=== PATIENT | female | born 1955 | race Caucasian/White ===

== ENCOUNTER 2019-03-28 09:36 | Day surgery (SDC) ==
--- NOTE | 2019-03-22 08:14 | EKG Report ---
Test Performed on : 03/22/2019 08:06:09 AM Test Reason : PAT Blood Pressure : / mmHG Vent. Rate : 082 BPM Atrial Rate : 082 BPM P-R Int : 166 ms QRS Dur : 096 ms QT Int : 378 ms P-R-T Axes : 046 046 019 degrees QTc Int : 441 ms Normal sinus rhythm. Nonspecific T wave abnormality Abnormal ECG No previous ECGs available Confirmed by Richard Garcia MD ([id number]) on 03/23/2019 7:33:51 AM
[2019-03-22 08:19] LABS: URINE SOURCE CLEAN CATCH
[2019-03-22 08:48] LABS: BASO# 0.02 X1000 (0.0-0.2); BASO% 0.8 % (0.0-0.8); EOS# 0.08 X1000 (0.0-0.7); EOS% 3.1 % (0.0-10.0); HEMATOCRIT 38.2 % (37.0-47.0); HEMOGLOBIN 12.9 g/dL (12.0-16.0); LYMPH% 38.2 % (20.5-51.1); MCH 29.9 PG (27-31); MCHC 33.8 g/dL (33-37); MCV 88.4 FL (81-99); MONO% 7.6 % (1.7-9.3); MPV 10.9 FL (7.4-10.4); NEUT# 1.32 X1000 (1.4-6.5); NEUT% 50.3 % (42.2-75.2); PLT 105 X1000 (130-400); RBC 4.32 XMIL (4.2-5.4); RDW 14.9 % (11.5-14.5); WBC 2.62 X1000 (4.8-10.8)
[2019-03-22 08:56] LABS: BILIRUBIN URINE NEGATIVE (NEGATIVE); BLOOD URINE NEGATIVE (NEGATIVE); COLOR YELLOW; GLUCOSE URINE NEGATIVE (NEGATIVE); KETONE URINE NEGATIVE (NEGATIVE); LEUKOCYTES URINE MODERATE (NEGATIVE); NITRITE URINE NEGATIVE (NEGATIVE); PROTEIN URINE 30 mg/dL (NEGATIVE); SP GRAVITY URINE 1.024; TURBIDITY URINE CLEAR (CLEAR); UROBILINOGEN URINE 2 mg/dL (NORMAL)
[2019-03-22 08:59] LABS: UR EPITHELIAL CELLS >10 /HPF (<10); URINE BACTERIA 1+ /HPF; URINE RBC <10 /HPF (<10); URINE WBC <10 /HPF (<10)
[2019-03-22 09:42] LABS: AGAP 10; BUN 14 mg/dL (8-22); CHLORIDE 109 mmol/L (98-107); COSMO 291; CREATININE 0.6 mg/dL (0.5-0.9); ESTIMATED GFR > 60; GLUCOSE 94 mg/dL (70-104); POTASSIUM 4.4 mmol/L (3.5-5.1); SODIUM 146 mmol/L (136-145); TCO2 27 mmol/L (25-35)
[2019-03-22 10:10] LABS: INR 1.09; PROTIME 14.2 Seconds (11.0-16.0)
[2019-03-28] MEDS ORDERED: COLACE ONE (10:03)
[2019-03-28] MEDS ORDERED: PEPCID ONE (10:03)
[2019-03-28] MEDS ORDERED: KEFZOL 1 GM/D5W 2 GM/100 ML IVPB ONE (10:03)
[2019-03-28] MEDS ORDERED: CELEBREX ONE (10:03)
[2019-03-28] MEDS ORDERED: REGLAN ONE (10:03)
[2019-03-28] MEDS ORDERED: LYRICA ONE (10:03)
[2019-03-28] MEDS ORDERED: LR 1,000 ML ONE (10:03)
[2019-03-28] MEDS ORDERED: DIPRIVAN 1% ONE (11:40)
[2019-03-28] MEDS ORDERED: TORADOL ONE (11:46)
[2019-03-28] MEDS ORDERED: DURAMORPH ONE (11:46)
[2019-03-28] MEDS ORDERED: MARCAINE 0.25% PF ONE (11:46)
[2019-03-28] MEDS ORDERED: CYKLOKAPRON 1,000 MG/NS 1,000 MG/100 ML IVPB ONE ×2 (11:47→11:48)
[2019-03-28] MEDS ORDERED: NEOSPORIN G.U. IRRIGANT ONE (11:47)
[2019-03-28] MEDS ORDERED: EXPAREL 1.3% ONE (11:47)
[2019-03-28] MEDS ORDERED: SODIUM CHLORIDE 0.9% ONE (11:47)
[2019-03-28] MEDS ORDERED: VANCOMYCIN ONE (11:47)
[2019-03-28] MEDS ORDERED: FENTANYL ONE (12:09)
[2019-03-28 13:14] LABS: BILIRUBIN URINE NEGATIVE (NEGATIVE); BLOOD URINE NEGATIVE (NEGATIVE); COLOR YELLOW; GLUCOSE URINE NEGATIVE (NEGATIVE); KETONE URINE NEGATIVE (NEGATIVE); LEUKOCYTES URINE NEGATIVE (NEGATIVE); NITRITE URINE NEGATIVE (NEGATIVE); PH URINE 6.5; PROTEIN URINE TRACE mg/dL (NEGATIVE); SP GRAVITY URINE 1.014; TURBIDITY URINE CLEAR (CLEAR); URINE SOURCE CATH; UROBILINOGEN URINE NORMAL (NORMAL)
[2019-03-28 13:15] LABS: UR EPITHELIAL CELLS <10 /HPF (<10); URINE BACTERIA NEGATIVE /HPF; URINE RBC <10 /HPF (<10); URINE WBC <10 /HPF (<10)
[2019-03-28] MEDS ORDERED: OFIRMEV 1000 MG/ISOTONIC SOLN 1,000 MG/100 ML BOTTLE ONE (13:47)
[2019-03-28] MEDS ORDERED: NS 1,000 ML ONE (14:30)
--- NOTE | 2019-03-28 14:45 | Diag Imaging Result Doc PS360 ---
EXAM: KNEE 1-2 VIEWS-RIGHT 03/28/2019 HISTORY: R TKA TECHNIQUE: Right knee two views COMMENT: There is a total knee arthroplasty. There is no evidence of acute bony abnormality otherwise. IMPRESSION: Postsurgical changes. Electronically signed by Zev Mayfield 03/28/2019 2:43 PM
--- NOTE | 2019-03-28 15:07 | OPERATIVE NOTE ---
PROCEDURE DATE: 03/28/2019 PREOPERATIVE DIAGNOSIS: Degenerative joint disease, right knee. POSTOPERATIVE DIAGNOSIS: Degenerative joint disease, right knee. PROCEDURE PERFORMED: Right total knee arthroplasty. SURGEON: Kaur Fine MD. AUTOMOBILE ASSEMBLY SUPERVISOR: BRITTANY Bach. Mr. Bartholomew was necessary for proper retraction and manipulation the leg during the case. ANESTHESIA: Spinal. COMPLICATION: None. PROCEDURE IN DETAIL: This is a 63-year-old female with DJD about the right knee presents for surgical knee replacement. Risks, benefits, and no guarantees were discussed and she is willing to proceed. She was taken to the operating room and satisfactory anesthesia obtained. The right knee was prepped and draped in usual sterile fashion. A time-out was taken to confirm operative site, procedure, and patient. The leg was wrapped with an Esmarch and tourniquet inflated to 350 mmHg. A midline incision was made over the front of the knee followed by quad tendon sparing arthrotomy. The patella was everted and resurfaced with freehand technique and sized to a 29 medialized dome patella. The drill paddle was used to prepare for the patellar implant and the protective cover placed on this and subluxed laterally. The knee was flexed. Intramedullary hole made in the distal femur and the distal femur reamed up to a 14 reamer to accommodate a stemmed prosthesis. Decision was made to make a stemmed primary joint replacement on both sides due to osteoporosis of the bone as well as moderate obesity of the leg. After reaming up to a 14 reamer with the stem in the intramedullary canal, the distal femur was cut and primary slot roughly 10-11 mm distal femoral resection and 5 degrees of valgus. Any remaining osteophytes were debrided about the femur. The knee was then flexed and the tibial cutting block assembled with extramedullary alignment and the tibial resection made. The intramedullary canal of the tibia was reamed up to a 12 mm reamer to accommodate a 12 mm stem on the tibial tray. The tibial was broached proximally up to a 37 metaphyseal sleeve. A 2.5 Sigma tibial tray with a trial metaphyseal sleeve and a 14 mm stem was assembled and placed in the tibia. The 2.5 finishing block for the femur was then assembled and the knee placed at 90 degrees and the collateral ligaments tensioned with a spacer block. A femoral block was then secured and the anterior, posterior, and chamfer cuts sequentially made. The trial femur was then assembled and a trial reduction performed with good range of motion and stability with a 15 mm trial implant. The patella had midline tracking. The trial components were removed and the bony surfaces thoroughly irrigated with pulsatile lavage. The femoral component was assembled with a 75 x 14 stem, a 31 femoral sleeve, and a 2.5 TC3 right femoral component. Tibial component was a 2.5 tray with a 37 metaphyseal sleeve and a 12 x 75 stem. The cement with a gram of vancomycin was then used to cement the implant in place with the bony surfaces with the ingrowth inside the intramedullary canal. While the cement hardened, the excess cement was removed with a [place] elevator. The joint capsule was injected with Exparel and a Hemovac drain placed. The patella was cemented on at the same time as the femur and tibia. After curing the cement, a 15 mm posterior stabilized polyethylene bearing was inserted into the tibial tray and the knee reduced. Final range of motion was 0 to 120 degrees of flexion with midline tracking and excellent soft tissue balance. The wound was copiously irrigated with irrigant. It was closed over the drain with #1 Vicryl in the arthrotomy, 2-0 Vicryl in the subcutaneous, and skin andrey on the skin edges. Sterile dressings completed the closure and she was recovered from anesthesia and transferred to the recovery room in stable condition. No intraoperative complications were noted. Instrument count and sponge count was correct at the time of closure. cc: Chris Fine MD
[2019-03-28] MEDS ORDERED: ZOFRAN IV PRN (15:45)
[2019-03-28] MEDS ORDERED: ZOFRAN ODT PO PRN (15:45)
[2019-03-28] MEDS ORDERED: OXY IR PO PRN (15:45)
[2019-03-28] MEDS ORDERED: MORPHINE IV PRN ×3 (15:45)
[2019-03-28] MEDS ORDERED: PATIENT'S OWN MED PO PRN (18:22)
[2019-03-28] MEDS: KEFZOL 2 GM/D5W 2 GM/50 ML IVPB IV SCH (20:09)
[2019-03-28] MEDS: ULTRAM PO SCH (20:10)
[2019-03-28] MEDS: PERIDEX MT SCH (20:10)
[2019-03-28] MEDS: NS 1,000 ML IV SCH (20:10)
[2019-03-28] MEDS: TYLENOL PO SCH (20:11)
[2019-03-28] MEDS: CELEBREX PO SCH (20:11)
[2019-03-28] MEDS: COLACE PO SCH (20:12)
[2019-03-28] MEDS ORDERED: NON-FORMULARY MED (Celecoxib [Celebrex] 200 MG) PO SCH (21:00)
[2019-03-29] MEDS: TYLENOL PO SCH ×2 (02:45→08:12)
[2019-03-29] MEDS: ULTRAM PO SCH ×3 (02:46→12:15)
[2019-03-29] MEDS: NS 1,000 ML IV SCH ×2 (02:46→07:55)
[2019-03-29] MEDS: KEFZOL 2 GM/D5W 2 GM/50 ML IVPB IV SCH (04:43)
[2019-03-29 06:00] LABS: HEMATOCRIT 31.5 % (37.0-47.0); HEMOGLOBIN 10.5 g/dL (12.0-16.0)
[2019-03-29] MEDS ORDERED: XARELTO PO SCH (06:00)
[2019-03-29 06:19] LABS: AGAP 8; BUN 14 mg/dL (8-22); CALCIUM 7.9 mg/dL (8.8-10.2); CHLORIDE 102 mmol/L (98-107); COSMO 274; CREATININE 0.6 mg/dL (0.5-0.9); ESTIMATED GFR > 60; GLUCOSE 127 mg/dL (70-104); POTASSIUM 3.3 mmol/L (3.5-5.1); SODIUM 136 mmol/L (136-145); TCO2 26 mmol/L (25-35)
[2019-03-29 07:38] VITALS: BP 102/62
--- NOTE | 2019-03-29 07:48 | ORTHOPAEDICS PROGRESS NOTE ---
DATE: 03/29/2019 SUBJECTIVE: Ms. Mahajan is seen status post total knee replacement. At the present time, she is afebrile with stable vital signs. Her bandage is clean and dry. She is motor and sensory intact with no signs of infection, DVT, or bleeding. We will plan on mobilizing her today. She can be discharged home with outpatient followup and home therapy. She is to continue with all her regular medicines. We have placed her on Rulo 10 as needed for pain, Xarelto 10 mg for DVT prophylaxis, and Bactrim for infection prophylaxis. She is to return in roughly 10 to 14 days. She is to call or return for any worsening signs or symptoms in the interim. cc: Chris Fine MD
[2019-03-29] MEDS ORDERED: PLAQUENIL PO SCH (08:00)
[2019-03-29] MEDS ORDERED: PATIENT'S OWN MED PO SCH (08:00)
[2019-03-29] MEDS: OXY IR PO PRN ×2 (08:11→11:40)
[2019-03-29] MEDS: CELEBREX PO SCH (08:12)
[2019-03-29] MEDS: PERIDEX MT SCH (08:13)
[2019-03-29] MEDS ORDERED: PEPCID PO SCH (09:00)
[2019-03-29] MEDS ORDERED: VITAMIN D PO SCH (09:00)
[2019-03-29] MEDS: COLACE PO SCH (10:09)
== END 2019-03-29 16:38 | disposition home or self-care (01) ==
LOC: OR 09:36 → 4N 09:36 → OR 03-29 16:38
PROVIDERS: ATTEND Orthopaedic Surgery Adult Reconstructive Orthopaedic Surgery

== ENCOUNTER 2019-04-19 21:35 | Inpatient (IN) ==
[2019-04-19] MEDS ORDERED: TYLENOL PO ONE (22:10)
[2019-04-19 23:09] LABS: INR 1.37; PROTIME 17.2 Seconds (11.0-16.0)
[2019-04-19 23:10] LABS: PTT 33.9 Seconds (22.3-41.8)
[2019-04-19 23:19] LABS: HEMATOCRIT 31.2 % (37.0-47.0); HEMOGLOBIN 10.3 g/dL (12.0-16.0); LYMPH# 0.19 X1000 (1.2-3.4); LYMPH% 11.1 % (20.5-51.1); MCH 30.5 PG (27-31); MCV 92.3 FL (81-99); MONO# 0.03 X1000 (0.11-0.59); MONO% 1.8 % (1.7-9.3); MPV 10.7 FL (7.4-10.4); NEUT# 1.49 X1000 (1.4-6.5); NEUT% 87.1 % (42.2-75.2); PLT 97 X1000 (130-400); RBC 3.38 XMIL (4.2-5.4); RDW 16.5 % (11.5-14.5); WBC 1.71 X1000 (4.8-10.8)
[2019-04-19 23:29] LABS: AGAP 12; ALBUMIN 3.1 g/dL (3.5-5.0); ALKALINE PHOSPHATASE 192 U/L (32-104); BUN 18 mg/dL (8-22); CALCIUM 8.4 mg/dL (8.8-10.2); CHLORIDE 105 mmol/L (98-107); COSMO 280; CREATININE 0.7 mg/dL (0.5-0.9); ESTIMATED GFR > 60; GLUCOSE 109 mg/dL (70-104); GOT 55 U/L (10-30); GPT 43 U/L (10-36); POTASSIUM 3.4 mmol/L (3.5-5.1); SODIUM 139 mmol/L (136-145); TCO2 22 mmol/L (25-35); TOTAL BILIRUBIN 2.17 mg/dL (0.20-1.00); TOTAL PROTEIN 6.3 g/dL (6.3-8.3)
[2019-04-20 00:14] LABS: URINE SOURCE CLEAN CATCH
[2019-04-20 00:20] LABS: BILIRUBIN URINE SMALL (NEGATIVE); BLOOD URINE NEGATIVE (NEGATIVE); COLOR ORANGE; GLUCOSE URINE NEGATIVE (NEGATIVE); KETONE URINE NEGATIVE (NEGATIVE); LEUKOCYTES URINE MODERATE (NEGATIVE); NITRITE URINE NEGATIVE (NEGATIVE); PH URINE 5.5; PROTEIN URINE 100 mg/dL (NEGATIVE); SP GRAVITY URINE 1.029; TURBIDITY URINE HAZY (CLEAR); UROBILINOGEN URINE 3 mg/dL (NORMAL)
[2019-04-20 00:22] LABS: UR EPITHELIAL CELLS >10 /HPF (<10); URINE BACTERIA 1+ /HPF; URINE RBC <10 /HPF (<10); URINE WBC 20-40 /HPF (<10)
[2019-04-20 00:27] LABS: URINE CASTS NONE SEEN; URINE CRYSTALS NONE SEEN; URINE SMALL ROUND CELLS NONE SEEN; URINE YEAST NONE SEEN
[2019-04-20] MEDS ORDERED: ROCEPHIN 1 GM in NS 50 ML IV ONE (00:36)
[2019-04-20] MEDS ORDERED: NS 1,000 ML IV ONE (00:45)
--- NOTE | 2019-04-20 00:47 | PROVIDER DOCUMENTATION ---
This chart was entered by Lexy Landers Scribe, acting as scribe for Wilber Cha MD. HPI-General Adult - General Chief Complaint: Post Op Complaint Stated Complaint: KNEE SURGERY POST OP COMPLAINT Time Seen by Provider: 04/19/19 21:57 Source: patient Allergies/Adverse Reactions: Patient Allergies Allergy/AdvReac Type Severity Reaction Status Date / Time aspirin Allergy NAUSEA/VOMI Verified 03/27/19 09:05 TING Home Medications: Home Medication List Medication Instructions Recorded Confirmed Last Taken Type Celecoxib [Celebrex] 200 mg PO WBREAKFAST 03/22/19 03/28/19 03/26/19 History Cholecalciferol (Vit D3) [Vitamin 1,000 unit PO DAILY 03/22/19 03/28/19 03/27/19 08:00 History D3] Hydroxychloroquine Sulfate 200 mg PO BID CC 03/22/19 03/28/19 03/27/19 08:00 History [Plaquenil] Mesalamine [Apriso] 2 tab PO WBREAKFAST 03/22/19 03/28/19 03/27/19 08:00 History Mesalamine [Apriso] 4 tab PO DAILY PRN PRN 03/22/19 03/28/19 Unknown History Hydrocodone/Acetaminophen [[place] 1 ea PO Q4H PRN #30 tab 03/29/19 Unknown Rx 10-325 Tablet] Rivaroxaban [Xarelto] 10 mg PO DAILY@0600 tab 03/29/19 Unknown Rx Sulfamethoxazole/Trimethoprim 1 ea PO BID #14 tab 03/29/19 Unknown Rx [Bactrim Ds Tablet] - History of Present Illness -Gen Adult Nature of Presenting Problems: pt is a 63 yr old female presenting with 1 day complaint of fever, cough , nausea and dizziness, onset last night, pt reports nausea improved with Zofran, no fever improvement with tylenol/motrin. pt reports right knee replacement 3 weeks ago with no issues post surgery. pt denies any other complaints. Location of Pain/Injury: reports: none Pain Radiation: reports: no radiation Quality of Pain: reports: none Severity: reports: moderate Onset/Duration: reports: last night Timing: reports: still present Context/Activities at Onset: reports: rest Modifying Factors: improves with: analgesics (tylenol/motrin-no relief), other medication (zofran-no relief) Associated Symptoms: reports: cough, dizziness, fever/chills, nausea. denies: vomiting Similar Symptoms Previously?: No Recently seen or treated by another doctor?: No Review of Systems - Adult - REVIEW OF SYSTEMS - ADULT Constitutional: reports: chills, fever, fatique Eyes: reports: no symptoms reported Ears, Nose, Mouth & Throat: denies: ear pain, sinus problem, throat pain Cardiovascular: denies: chest pain, palpitations, syncope Respiratory: reports: cough. denies: shortness of breath, wheezing Gastrointestinal: reports: nausea. denies: abdominal pain, diarrhea, vomiting Genitourinary: reports: no symptoms reported Musculoskeletal: reports: joint pain (right knee-recent surgery). denies: muscle aches Integumentary: reports: no symptoms reported Neurological: reports: dizziness/vertigo. denies: headache/migraines, syncope Psychiatric: reports: no symptoms reported Endocrine: reports: no symptoms reported Hematologic/Lymphatic: reports: no symptoms reported Allergic/Immunologic: reports: no symptoms reported All Other Systems: Reviewed and Negative Past History - Adult - PAST MEDICAL HISTORY-ADULT Review of Records: reports: Old Records Reviewed, Nursing Assessment Review, Medications Reviewed, Social history reviewed & non-contributory. Major Childhood Illnesses: reports: denies history Cardiovascular: reports: denies history Respiratory: reports: denies history Gastrointestinal: reports: denies history Obstetrical/Gynecological: reports: denies history Genitourinary: reports: denies history Musculoskeletal: reports: denies history Neurological: reports: denies history Endocrine/Immune: reports: denies history Other Conditions: reports: denies history - IMMUNIZATION STATUS Childhood Immunizations: See Nurse Assessment Flu Vaccine: See Nurse Assessment - FAMILY HISTORY Family History: reviewed, not pertinent - SOCIAL HISTORY Living Situation: family Physical Exam-General - PHYSICAL EXAM-ADULT Initial Vital Signs Reviewed: Yes - CONSTITUTIONAL General Appearance: alert, no apparent distress, obese - EYES Eyes: PERRL/EOMI - HEAD, EARS, NOSE, MOUTH & THROAT HENMT: normocephalic/atraumatic, moist mucous membranes, normal ENT inspection - NECK Neck: non-tender, full range of motion, supple, normal inspection - RESPIRATORY Respiratory: chest non-tender, lungs clear, normal breath sounds, no pleuratic chest pain, no respiratory distress, no accessory muscle use - CARDIOVASCULAR Cardiovascular: normal peripheral pulses, tachycardia - GASTROINTESTINAL (ABDOMEN) Abdominal Exam: normal bowel sounds, non tender, soft - LYMPHATIC Lymphatic: no adenopathy - MUSCULOSKELETAL Back Exam: normal inspection, no CVA tenderness, no vertebral tenderness Extremity: other (well healing surgical inscion right knee) - SKIN Integumentary: normal color, normal turgor, warm/dry - NEUROLOGIC Neurologic: grossly normal - PSYCHIATRIC Psych/Mental Status: normal mood/affect Progress - PLAN OF CARE/RESULTS Progress/Plan/Lab Results: Vital Signs - 8 hr 04/19/19 21:43 Temperature 102.4 F H Pulse Rate 103 H Respiratory Rate 17 Blood Pressure 109/66 O2 Sat by Pulse Oximetry 93 L Result Diagrams: 04/19/19 22:50 04/19/19 22:50 - CONSULTS/PCP/HOSPITALIST Notification #1 *Consult/PCP/Hospitalist*: Dr Pedroza Time Discussed: 00:40 Reason/Comments: discussed plan of care for pt admit Consult Disposition: Admit Departure - Departure Date of Disposition Decision: 04/20/19 Time of Disposition Decision: 00:46 DIAGNOSIS: Fever, Urinary tract infection Disposition: ADMITTED INPATIENT 09 Certified Medical Emergency: Emergent Condition: Serious Referrals and Follow-Ups: Sánchez Hendrickson [Primary Care Provider] - - Critical Care Note This patient required my direct & personal management of CC.: Yes Attestation - Physician/ YI Attestation The physician spent face to face time with patient:: Yes Advanced Practice Provider documentation review:: Supervising physician onsite and consulted in the evaluation and care of this patient. The physician did have a face to face encounter with the patient. This chart was documented by the indicated scribe, (Lexy Landers Scribe) and accurately reflects the services I performed and decisions made by me, Wilber Cha MD, as attested by the provider's signature.
[2019-04-20] MEDS ORDERED: TYLENOL PO PRN (02:06)
[2019-04-20] MEDS: NS 1,000 ML IV SCH ×2 (02:25→22:52)
--- NOTE | 2019-04-20 03:03 | HISTORY AND PHYSICAL ---
PRIMARY CARE PHYSICIAN: Dr. Hendrickson. CHIEF COMPLAINT: Fever, nausea, vomiting x2 days. HISTORY OF PRESENTING ILLNESS: This is a 63-year-old female with a history of lupus, ulcerative colitis, and breast cancer, who recently had a right knee replacement, had presented to the emergency department with complaint of fever, nausea, vomiting for the past 2 days. She states that she was not feeling well and subsequently she had come to the emergency department. In the ED, she was evaluated, she was found to have a fever, and also found to possibly have a UTI. Due to her presenting symptoms, it was thought that she would need admission for further management. At the time of my examination, patient denied any headache, chest pain, shortness of breath, hemoptysis, or weight changes, but complained of fever, being nauseated, and not feeling well. PAST MEDICAL HISTORY: Include lupus, ulcerative colitis, breast cancer, she is status post radiation treatment. PAST SURGICAL HISTORY: Right knee replacement, left breast lumpectomy. ALLERGIES: No known drug allergies. CURRENT MEDICATIONS: Include Celebrex 200 mg p.o. daily, [place] 10/325 one p.o. q.6 hours, Plaquenil 200 mg p.o. daily, Xarelto 10 mg p.o. daily. SOCIAL HISTORY: She denies any history of smoking, alcohol, or illicit drug use. FAMILY HISTORY: No history of coronary artery disease. REVIEW OF SYSTEMS: Fourteen-point review of system as listed in HPI. Other systems negative. PHYSICAL EXAMINATION: GENERAL: Cooperative, friendly female, she is resting more comfortably now. VITAL SIGNS: Temperature 100.9 degrees, pulse 107, respirations 20, blood pressure 95/46. HEENT: Atraumatic, normocephalic. Extraocular movements intact. PERRLA. NECK: No masses. CHEST: Clear to auscultation. CARDIOVASCULAR: Regular rate and rhythm. ABDOMEN: Soft, positive bowel sounds. EXTREMITIES: No edema. NEUROLOGIC: She is awake, alert, oriented x3. GENITOURINARY: No bladder distention. SKIN: Warm. LABORATORIES AND STUDIES: UA shows +1 bacteria and moderate leukocytes. Sodium 139, potassium 3.4, chloride 105, CO2 is 22, BUN is 18, creatinine 0.7. Glucose 109. WBCs 1.71, hemoglobin 10.3, hematocrit 31.2, platelets 97,000. ASSESSMENT: A 63-year-old female with a history of lupus, ulcerative colitis, and breast cancer, who had presented to emergency department. Who had complained of fever, nausea, vomiting for the past 2 days. She was evaluated in the emergency department, and it was suspected possibly she had a urinary tract infection. Subsequently, we will place her for observation for further evaluation and management. 1. Fever. 2. Suspected urinary tract infection. 3. History of lupus. 4. Status post recent knee replacement. PLAN: 1. We will admit patient to medical floor with telemetry. 2. We will check blood cultures, urine cultures, and start patient on empiric antibiotics. 3. We will continue with gentle hydration. 4. Restart other home medications. 5. Patient is on Xarelto and this will suffice for DVT prophylaxis. 6. We will continue to follow and reassess, make further recommendation based on patient's clinical course. cc: Yonatan Pedroza MD
--- NOTE | 2019-04-20 07:18 | Diag Imaging Result Doc PS360 ---
EXAM: CHEST-2 VIEWS 04/19/2019 HISTORY: fever TECHNIQUE: AP and sitting lateral chest COMMENT: There is cardiomegaly. The pulmonary vascularity is prominent. The inspiration is less optimal than on 05/06/2011. IMPRESSION: Borderline cardiomegaly with mild pulmonary edema. Electronically signed by Zev Mayfield 04/20/2019 7:16 AM
[2019-04-20] MEDS ORDERED: VANCOMYCIN IV PER PHARMACY MISC SCH (08:30)
[2019-04-20] MEDS: ZOFRAN IV PRN (08:48)
[2019-04-20] MEDS ORDERED: VANCOMYCIN 2,500 MG in NS 500 ML IV ONE (11:00)
[2019-04-20 16:36] LABS: ALLEN TEST YES; BE -4.6 mmoll (-3.0-3.0); BLOOD TYPE ARTERIAL; HCO3-(ACT) 21.3 mmoll (20.0-26.0); METHB 1.3 % (0.0-1.5); O2(CT) 14.8 mL/dL (15.0-23.0); O2HB 95.7 % (95.0-99.0); PCO2(98.6) 36 mmHg (35-45); PO2(98.6) 102 mmHg (60-100); SAMPLE BLOOD; SAO2 98.3 % (95.0-100.0); THB 10.9 g/dL (11.5-17.4); pH(98.6) 7.36 (7.35-7.45)
[2019-04-20 16:42] LABS: MODALITY CANNULA
--- NOTE | 2019-04-20 16:57 | PROGRESS NOTE ---
DATE: 04/20/2019 SUBJECTIVE: Today Ms. Mahajan referred to continuously feeling sick. At the time of the encounter the 2 sons were at the bedside and another female family member was at the bedside. She refers to be feeling extremely tired and not feeling well. OBJECTIVE: Vital signs: Blood pressure is 126/62, pulse of 100, respirations 20, temperature 99.4 degrees. General: Ms. Mahajan is a 63-year-old female. She is in bed. She is mildly tachypneic. HEENT: Mucosa is dry, anicteric, and acyanotic. Neck: Supple. Chest: Good air entry bilaterally. No crepitations. Cardiovascular: Tachycardic but no murmur. Abdomen: Soft. Bowel sounds present. Extremities: The left lower extremity is unremarkable. The right lower extremity distal leg is slightly warm and is minimally tender to touch. The right knee surgery site looks remarkably clean but the entire leg is slightly warmer on palpation. LIVESTOCK AGENT: The patient is awake, alert. LABORATORY DATA: WBC is 1.71, hemoglobin is 10.3, platelet count of 96,000. Chemistry is also reviewed. The patient's plasma lactate is 2.3. Her chest x-ray this morning shows borderline cardiomegaly with pulmonary edema. Inspiration was suboptimal, however. Blood culture is currently 2/2 positive for gram-positive cocci. ASSESSMENT: 1. Gram-positive cocci bacteremia, presumably from cellulitis on the right lower extremity. The patient is on ideal antimicrobial coverage until we know the ID and sensitivity. 2. Suspected right lower extremity cellulitis. 3. Recent right total knee arthroplasty. 4. History of ulcerative colitis. The patient follows up with Dr. Slater. 5. History of lupus, on Plaquenil. This will be withheld for now, until patient is more stabilized. 6. Sepsis with gram-positive cocci bacteremia, presumably from skin and soft tissue infection. The patient has hardware in her right knee. It is very possible this can be seeded. She is currently on adequate antimicrobial therapy. Will also notify her surgeon to be aware that the patient is in the hospital. PLAN: So in general, Ms. Mahajan is currently tachypneic, tachycardic, and mildly febrile and despite that her blood pressure seems to be fairly okay. I think she is remarkably septic and that she will need to be at a higher level, so we are going to transfer her from the medical floor to the ICU for very close monitoring. We will also consult ID to guide with antimicrobial therapy and will notify her orthopedic surgeon. I have discussed my findings and the plan with 2 sons and the female family friend who was at the bedside. They are all in agreement. Ms. Mahajan is currently full code. cc: Patrice Lomeli MD
--- NOTE | 2019-04-20 20:16 | Diag Imaging Result Doc PS360 ---
US RENAL 2 (RETROPER) COMPLETE - 04/20/2019 INDICATION: UTI TECHNIQUE: COMPARISON: 10/09/2011 FINDINGS: The kidneys are normal in texture. No mass or obstruction. The right kidney measures 11.3 x 5.4 x 4.8 cm. The left kidney measures 11.1 x 5.2 x 3.7 cm. Urinary bladder is grossly normal. There is trace ascites in the pelvis. IMPRESSION: Normal exam of the urinary tract. Trace ascites in the pelvis. Electronically signed by Sang Davis 04/20/2019 8:13 PM
--- NOTE | 2019-04-20 21:58 | INFECTIOUS DISEASE CONSULT REP ---
DATE: 04/20/2019 CONCLUSION: The patient has a gram-positive coccal bacteremia. I think this could have originated from a urinary tract infection. The patient's distal right leg also is erythematous and it appears there is cellulitis present. RECOMMENDATIONS: I agree with treating the patient with vancomycin. I have ordered for an urgent ultrasound to be done to rule out a blockage in the urinary tract which could be causing the patient's bacteremia. If there is a blockage, then a urologist will be consulted. The patient will require 6 weeks of treatment for her bacteremia because she has a total knee arthroplasty in place, which could have become infected hematogenously with the gram-positive cocci in the patient's bloodstream. DISCUSSION: The patient tells me that for the past 3 days she has been having anorexia, some nausea, vomiting, occasional diarrhea and abdominal pain. She has also had fever. She has not, however, had dysuria. LABORATORY DATA: The patient's studies thus far show a CBC with a white count of 1710, hemoglobin 10.3 and platelet count 97,000. Arterial blood gas shows a pH of 7.36, a pO2 of 102 and a pCO2 of 36. Creatinine is 0.7, GFR is greater than 60. Liver function studies are elevated, with the alkaline phosphatase being 192. Urinalysis shows white cells and bacteria. Blood cultures are growing a gram-positive coccus. A urine culture is pending. DIAGNOSTIC DATA: Chest x-ray shows cardiomegaly with mild pulmonary edema. PAST MEDICAL HISTORY/REVIEW OF SYSTEMS: Eyes and ears: She wears glasses, but her hearing is good. Neck: No stiffness. Respiratory: No cough or dyspnea. Cardiac: No chest pain or palpitations. GI and : See present illness. Bones, joints, muscles: She recently had a right total knee arthroplasty and she has not had much pain, and there has been no drainage coming from the arthroplasty incision. OBSTETRICAL AND GYNECOLOGIC HISTORY: The patient is a 2, para 2, AB 0. She has had a hysterectomy. PREVIOUS HOSPITALIZATIONS AND OPERATIONS: She has had a right total knee arthroplasty, a left breast lumpectomy, 2 labor and deliveries, and a hysterectomy. MEDICAL DISEASES: Positive for obesity, systemic lupus, ulcerative colitis, breast cancer. The breast cancer was treated with radiation. FAMILY HISTORY: Positive for diabetes mellitus, stroke, cancer, and a cardiac condition which required a pacemaker to be placed. ALLERGIES: The patient has an allergy to aspirin. MEDICATIONS: Her home medications include Celebrex, hydrocodone, Plaquenil and Apriso. SOCIAL HISTORY: The patient does not have any pets at home. She does not smoke cigarettes, drink alcoholic beverages or abuse drugs. PHYSICAL EXAMINATION: Vital signs: Temperature is 99.4 degrees, pulse 100, respirations 20, blood pressure 126/64. The patient weighs 242 pounds. Generally this is an obese, elderly female. She does not appear to be in any acute distress. Head, eyes, ears, nose and throat: She can hear my spoken words and see near objects. She does not have any white patches in her mouth.Neck: No meningismus. Lungs clear to auscultation. Cardiovascular: Regular heart rate. Abdomen soft and nontender. Neurologic: The patient is alert. She can move her extremities. She does not have a tremor. Her sensation is intact to touch. Her memory as regarding her medical history appeared to be intact. Extremities: The patient's right knee incision is intact and it is not draining or erythematous. The distal part of the right leg, though, is erythematous. Thank you for the consult. cc: Yves Young MD
[2019-04-21] MEDS ORDERED: ROCEPHIN 1 GM in NS 50 ML IV SCH (01:00)
[2019-04-21] MEDS: ZOFRAN IV PRN (02:52)
[2019-04-21] MEDS ORDERED: NORCO-5 PO ONE (03:43)
[2019-04-21] MEDS ORDERED: VANCOMYCIN 2,200 MG in NS 500 ML IV SCH (05:00)
[2019-04-21] MEDS ORDERED: CARDIZEM IV ONE (07:57)
[2019-04-21] MEDS: LOVENOX SUBQ SCH (08:14)
--- NOTE | 2019-04-21 08:52 | INFECTIOUS DISEASE PROGRESS NO ---
DATE: 04/21/2019 PRESENT ILLNESS: The patient has a group B strep bacteremia, the exact origin of which I am not certain. It could come from a urinary tract infection. The patient does have an area of cellulitis on her right leg, which could possibly be the origin of the group B strep bacteremia. MEDICATIONS: The patient is on vancomycin and Rocephin currently. PHYSICAL EXAMINATION: Vital Signs: Temperature is 99 degrees, pulse 91, respirations 27, blood pressure 117/53. General: This is an ill-appearing elderly female. She is in no acute distress and she looks better than she did yesterday. Head/eyes/ears/nose/throat: She can hear my spoken words and see near objects. She does not have any white patches in her mouth. Neck: No pain with movement of the neck. Lungs: Clear to auscultation. Cardiovascular: Heart rate is irregular. Abdomen: Soft and nontender. Neurologic: Patient is alert. She can move her extremities. There is no tremor. Extremities: The patient's legs are both edematous. The patient, on her right leg, has distal erythema that could be due to cellulitis. The patient's right knee, which has the prosthesis in it, is not any more swollen than the patient's left knee which does not have a prosthesis present. LAB AND X-RAY: I obtained last night ultrasound of the patient's kidneys. They were normal and there was no evidence of any kind of blockage in the urinary tract system. ASSESSMENT AND PLAN: Patient has a group B streptococcal bacteremia. I have discontinued vancomycin and I have increased the dose of Rocephin to 2 g IV every 24 hours. The final culture report on the urine is pending. I plan on treating the patient for 6 weeks with IV Rocephin in case the patient's right knee prosthesis became infected hematogenously. After that, I am going to put the patient on a low dose of penicillin such as 500 mg every 12 hours on an indefinite basis in case there is a small amount of residual infection on the knee prosthesis, which hopefully the penicillin will prevent from becoming an active infection on the knee. COMORBIDITIES: The patient is elderly. She just recently had surgery on her knee. She does have systemic lupus and ulcerative colitis and breast cancer which was treated. cc: Yves Young MD
[2019-04-21 09:01] LABS: BASO# 0.02 X1000 (0.0-0.2); BASO% 0.2 % (0.0-0.8); EOS# 0.01 X1000 (0.0-0.7); EOS% 0.1 % (0.0-10.0); HEMATOCRIT 30.8 % (37.0-47.0); HEMOGLOBIN 10.1 g/dL (12.0-16.0); IMM GRAN# 0.07 X1000 (0.0-0.04); IMM GRAN% 0.8 % (0.0-0.5); LYMPH# 0.88 X1000 (1.2-3.4); LYMPH% 9.7 % (20.5-51.1); MCH 30.1 PG (27-31); MCHC 32.8 g/dL (33-37); MCV 91.9 FL (81-99); MONO# 0.98 X1000 (0.11-0.59); MONO% 10.8 % (1.7-9.3); MPV 11.3 FL (7.4-10.4); NEUT# 7.14 X1000 (1.4-6.5); NEUT% 78.4 % (42.2-75.2); PLT 88 X1000 (130-400); RBC 3.35 XMIL (4.2-5.4); RDW 16.4 % (11.5-14.5)
--- NOTE | 2019-04-21 09:19 | ORTHOPAEDICS CONSULTATION ---
DATE: 04/21/2019 HISTORY OF PRESENT ILLNESS: A 63-year-old female with history of lupus and breast cancer and recent right total knee replacement about 3-4 weeks ago. She reports that she started developing fever, nausea, vomiting for a couple days and called her family physician and states that he thought she had a stomach virus. He called in some Zofran for her and she did not start feeling better. She then came to the emergency department and was evaluated. They did find a UTI and some cellulitis in the right lower extremity. PAST MEDICAL HISTORY: Includes lupus, ulcerative colitis, breast cancer, new onset atrial fibrillation with RVR. PAST SURGICAL HISTORY: She has had a right knee replacement and left breast lumpectomy. ALLERGIES: There are no known drug allergies except for aspirin. CURRENT MEDICATIONS: Include Celebrex 200 mg daily, Plaquenil 200 mg daily, and Xarelto 10 mg. SOCIAL HISTORY: She denies smoking, drinking alcohol, or illicit drug use. REVIEW OF SYSTEMS: Twelve point review of systems performed and pertinent positives listed in HPI. PHYSICAL EXAMINATION: General: Patient is awake, alert, sitting in bed comfortably. Vital Signs: Temperature 98.8 degrees, pulse rate 91, respiratory rate 27, blood pressure 117/53, O2 saturation 97% on 1 L nasal cannula. HEENT: Head is atraumatic, normocephalic. Eyes: Equal, round and reactive to light. Neck: Supple. Chest: There is equal chest expansion rise and fall. Cardiovascular: There is some tachycardia. Abdomen: Soft, nontender. Extremities: Right lower extremity exam: The right lower extremity from the distal third tibia to her foot does have some redness and swelling. There is tenderness to the calf region at this time. There is good range of motion to the right knee. There is no redness or warmth to the right knee at this time. Her incision is healing nicely. There is no drainage active at this time. Her Steri- Strips are in place. There is good capillary refill in the toes. There are good pedal pulses. There is small abrasion to the distal 3rd tibia that could of been a source of infection. LABS: White blood cells 1.71, hemoglobin 10.3, hematocrit 31.2, platelets 97,000. INR 1.37. Sodium 139, potassium 3.4, chloride 105, BUN 18, creatinine 0.7, glucose 109, calcium 8.4, AST 55, ALT 43. Alkaline phosphatase 192. Lactate is 2.3. Urine does show a urinary tract infection with orange hazy urine and a moderate amount of leukocytes. Blood culture does reveal gram- positive cocci. Dr. Young reports she does have group B strep in her bloodstream. ASSESSMENT: 1. Fever. 2. Cellulitis right lower extremity. 3. Atrial fibrillation, RVR. 4. Status post right total knee arthroplasty. 5. Suspected urinary tract infection. 6. Calf pain and swelling. PLAN: We will monitor the patient while she is in the hospital at this time. It does not appear the knee is infected at this time but there is positive gram cocci in her blood that could transfer to her knee replacement. We will follow up with Dr. Young' plan with IV antibiotics for 6 weeks and then a prophylactic antibiotic daily afterwards. We will go ahead and obtain an ultrasound venous Doppler of the right lower extremity at this time to rule out DVT. We will keep an eye on her while she is in the hospital and if she develops any kind of drainage or redness or increased pain throughout the knee then we may recommend a washout of the knee at that time. That will not be indicated at this time due to her current condition. We will keep an eye on her while she is in the hospital and check on her later. Dictated by BRITTANY Bach for Chris Fine MD cc: BRITTANY Bach MD
--- NOTE | 2019-04-21 09:59 | EKG Report ---
Test Performed on : 04/21/2019 07:39:42 AM Test Reason : AFIB Blood Pressure : / mmHG Vent. Rate : 102 BPM Atrial Rate : 092 BPM P-R Int : 000 ms QRS Dur : 088 ms QT Int : 338 ms P-R-T Axes : 000 070 -17 degrees QTc Int : 440 ms Atrial fibrillation. with rapid ventricular response. Nonspecific T wave abnormality Abnormal ECG When compared with ECG of 22-MAR-2019 08:06, Atrial fibrillation. has replaced Sinus rhythm. Confirmed by Leonel Adams MD ([id number]) on 04/27/2019 8:33:34 AM
[2019-04-21] MEDS: NS 1,000 ML IV SCH ×4 (10:04→22:16)
[2019-04-21] MEDS: VITAMIN D PO SCH (10:17)
[2019-04-21 10:20] LABS: AGAP 10; BUN 30 mg/dL (8-22); CALCIUM 7.9 mg/dL (8.8-10.2); CHLORIDE 102 mmol/L (98-107); COSMO 269; CREATININE 0.9 mg/dL (0.5-0.9); ESTIMATED GFR > 60; GLUCOSE 98 mg/dL (70-104); POTASSIUM 3.6 mmol/L (3.5-5.1); SODIUM 131 mmol/L (136-145); TCO2 19 mmol/L (25-35)
[2019-04-21 10:36] LABS: LYMPHS 10 % (21-51); MONO 8 % (1-9); SEGS 82 % (42-75)
[2019-04-21] MEDS: PLAQUENIL PO SCH (11:42)
[2019-04-21] MEDS ORDERED: CARDIZEM PO ONE (13:16)
[2019-04-21] MEDS ORDERED: MAGNESIUM SULFATE 2 GM/S.W.I. 2 GM/50 ML IVPB IV ONE (13:19)
[2019-04-21] MEDS: ROCEPHIN 2 GM in NS 50 ML IV SCH (13:35)
--- NOTE | 2019-04-21 13:46 | CARDIOLOGY CONSULTATION ---
DATE: 04/21/2019 REASON FOR CONSULTATION: Cardiology was consulted for atrial fibrillation. HISTORY OF PRESENT ILLNESS: Ms. Tabitha Mahajan is a 63-year-old lady, who has group B strep bacteremia, has cellulitis in her right leg, was admitted with a history of not feeling well and having had some nausea and low-grade fever and vomiting for the past 2 days prior to admission. She was noted to have urinary tract infection and cellulitis. She was admitted today. She went into atrial fibrillation, received 10 mg of Cardizem IV and transferred to the intensive care unit. Her rate is in the 90s to 100s in atrial fibrillation. From a cardiac standpoint, she has not had any previous cardiac history. Denies palpitations in the past. There is no history of atrial fibrillation. She denies any chest pain. She complains of not feeling well and generalized weakness. PAST MEDICAL HISTORY: 1. Right knee replacement recently. 2. Left breast lumpectomy and has had radiation for breast cancer. 3. Lupus. 4. Ulcerative colitis. HOME MEDICATIONS: Celebrex, [place], Plaquenil, Xarelto 10. ALLERGIES: She is not known to be allergic to any medications. REVIEW OF SYSTEM: General: A 14-point review of systems was done. GI System: As above. Cardiovascular System: As above. System: There is no dysuria or hematuria. Central nervous system: No focal weakness to suggest a CVA or TIA. PHYSICAL EXAMINATION: Vital Signs: On examination, blood pressure was 110/80. Cardiovascular System: First and second heart sounds heard. There was no S3 gallop. Respiratory System: Distant breath sounds. Otherwise, no significant rales noted. Abdomen: Soft. Extremities: Examination of extremities revealed cellulitis in her right lower extremity. LABS: Urinalysis: Moderate leukocytes. Sodium 139, potassium 3.4. BUN 18, creatinine 0.7, magnesium 1.5. X-RAYS: Electrocardiogram: Atrial fibrillation, nonspecific ST-T changes. ASSESSMENT AND PLAN: 1. Ms. Tabitha Mahajan is a 63-year-old lady with history of lupus, ulcerative colitis, breast cancer underwent right knee replacement. She is admitted with nausea, vomiting, not feeling well. Has cellulitis features on the right lower extremity. Has group B strep bacteremia. She went into atrial fibrillation. Currently, she is in atrial fibrillation. Rate under control. I would recommend Cardizem 60 mg oral three times a day. She is on Lovenox. I have not made any changes. 2. We will get an echocardiogram to assess cardiac and valvular function. 3. We will get serial cardiac enzymes as well. I suspect her atrial fibrillation is secondary to bacteremia and is secondary to sepsis and the stress , she has UTI as well. She, however, does have a history of lupus. We will get an echocardiogram to make sure there is no left ventricular dysfunction or pericardial effusion. 4. Magnesium was 1.5. We will replete her magnesium. Thank you for the consult. We will follow hospital course. cc: Zana Lentz MD MTDD
--- NOTE | 2019-04-21 16:12 | PROGRESS NOTE ---
DATE: 04/21/2019 SUBJECTIVE: This morning Ms. Mahajan refers to be doing a lot better. She was sitting up on the commode. Her daughter was at the bedside at the time of the encounter. She still had some discomfort in the right lower extremity, but for the most part she felt more energetic and stronger. Early on this morning, it was noted that Ms. Mahajan had gone into atrial fibrillation RVR. I was notified by the nursing staff. An EKG was ordered which confirmed atrial fibrillation RVR with a rate of about 102, but the patient actually had up to 120 to 130 at some time. OBJECTIVE: Vital Signs: Currently, blood pressure is 107/74, pulse of 95, respirations 22, and temperature 98.8 degrees. Patient's T-max was 99.7 degrees. General: Ms. Mahajan is a 63-year-old elderly female. She was sitting on the commode in no distress. Mucosa is pink and moist. Anicteric. Acyanotic. BMI is 43.5. HEENT: Mucosa was pink and moist. Anicteric. Acyanotic. Chest: Good air entry bilaterally. There was no crepitations. No crackles. Cardiovascular: Irregularly irregular and tachycardic, but no murmurs. Abdomen: Soft, distended, and nontender. Extremities: She has some minimal erythematous changes to the right lower extremity with some warm to touch. The knee continues to show recent surgical changes. FACING BASTER JUMPBASTING: Patient is awake, alert, and oriented. There is no focal neurological deficit. LABORATORY DATA: WBC is up to 9.10, hemoglobin is 10.1, and platelet count of 88,000. There are no bands on the peripheral smear. Chemistry is also reviewed. Sodium is 131, potassium is 3.6, chloride is 101, bicarb is 19, and BUN went up to 30. C-reactive protein as well as ESR are elevated. Pro B is 1481. Blood culture showing gram- positive cocci. Final identification was strep agalactia which is penicillin sensitive. No chest x-ray this morning. ASSESSMENT: 1. Sepsis with strep agalactia bacteremia. The patient has been transitioned only to ceftriaxone. ID is on board. 2. Right lower extremity cellulitis. We think this is the source of the strep agalactia. 3. Recent right total knee arthroplasty. Because of this hardware, Ms. Mahajan will have to be treated with more extended antimicrobial coverage because of fear that the hardware could have been seated. 4. History of ulcerative colitis and systemic lupus. The patient has been started on her home medications. 5. New onset atrial fibrillation and RVR. The patient has been started on p.o. Cardizem 60 mg 3 times per day. Cardiology has been consulted. I have also replenished her magnesium level and I have ordered an echocardiogram to look at the valvular structures. In general, I think Ms. Mahajan seems to be doing a lot better from sepsis standpoint. However, her heart went into atrial fibrillation RVR. She has a history of lupus which could potentially set her up for this abnormal rhythm, but obviously this could also have been precipitated because of the sepsis. She is hemodynamically stable. We will continue with the current antimicrobial therapy. I have ordered a consult for Infectious Disease, and also Cardiology to see her. I have discussed my findings and plan with Ms. Mahajan and the daughter who was at the bedside at the time of the encounter. cc: MD KALPESH Worrell
[2019-04-21] MEDS: CARDIZEM PO SCH (16:20)
[2019-04-21] MEDS: NORCO-5 PO PRN ×2 (18:14→22:16)
[2019-04-22 06:47] LABS: BASO# 0.02 X1000 (0.0-0.2); BASO% 0.2 % (0.0-0.8); EOS# 0.17 X1000 (0.0-0.7); EOS% 1.8 % (0.0-10.0); HEMATOCRIT 29.7 % (37.0-47.0); HEMOGLOBIN 9.8 g/dL (12.0-16.0); IMM GRAN# 0.03 X1000 (0.0-0.04); IMM GRAN% 0.3 % (0.0-0.5); LYMPH# 1.43 X1000 (1.2-3.4); LYMPH% 15.5 % (20.5-51.1); MCH 29.9 PG (27-31); MCV 90.5 FL (81-99); MONO# 1.09 X1000 (0.11-0.59); MONO% 11.8 % (1.7-9.3); MPV 11.6 FL (7.4-10.4); NEUT# 6.48 X1000 (1.4-6.5); NEUT% 70.4 % (42.2-75.2); PLT 100 X1000 (130-400); RBC 3.28 XMIL (4.2-5.4); WBC 9.22 X1000 (4.8-10.8)
[2019-04-22] MEDS ORDERED: LASIX IV ONE (07:10)
[2019-04-22 07:28] LABS: ALB/GLOB RATIO 0.8; ALBUMIN 2.3 g/dL (3.5-5.0); CALCIUM 7.7 mg/dL (8.8-10.2); MAGNESIUM 1.9 mg/dL (1.5-2.7); POTASSIUM 3.2 mmol/L (3.5-5.1); TOTAL BILIRUBIN 1.26 mg/dL (0.20-1.00); TOTAL PROTEIN 5.2 g/dL (6.3-8.3)
--- NOTE | 2019-04-22 07:40 | PROGRESS NOTE ---
DATE: 04/22/2019 SUBJECTIVE: This morning Ms. Mahajan refers to be doing a whole lot better. However, she feels like she is swelling up. OBJECTIVE: Vital signs: Blood pressure is 118/73, pulse of 87, respiration is 22, temperature is 98.0 degrees. General: On general exam, Ms. Mahajan is a 63-year-old female. She is in bed in no distress. HEENT: Mucosa is pink and moist. Anicteric. Acyanotic. Neck: Supple. Chest: Good air entry bilateral. There were no crepitations, no rhonchi. Cardiovascular: Irregularly irregular, but rate controlled. Abdomen: Abdomen is soft, distended, but nontender. There is a lot of fluid in the lateral side of the abdomen. Extremities: The upper thighs also have a lot of fluid infiltration. There is 2+ pedal edema. The right lower extremity continues to show erythematous changes. LABORATORY DATA: WBC is 9.22, hemoglobin 9.8, platelet count of 100, which is improving. Chemistry is still pending at the time of the encounter. ASSESSMENT: 1. Sepsis with Streptococcus agalactiae bacteremia. The patient is currently on ceftriaxone. Seems to be fairly stable. 2. Right lower extremity cellulitis. We think this is the source of the infection. 3. Recent right knee arthroplasty. 4. New onset of atrial fibrillation, rapid ventricular response. The patient is currently rate controlled, but she is still in atrial fibrillation. She is on Cardizem. Cardiology is on board. 5. Fluid overload. I think this is a combination of hydration during the sepsis stage, and the fact that the patient's atrial fibrillation with rapid ventricular response could have thrown her into congestive heart failure, diastolic type. We are going to give her 40 mg of Lasix this morning and monitor her intake and output. We will discontinue the intravenous fluids. 6. History of ulcerative colitis and lupus, stable. Patient's home medications have been restarted. PLAN: So, in general I think Ms. Mahajan looks a lot better. Her heart rate is now better controlled. She is still in atrial fibrillation. Echocardiogram was done yesterday; I am still awaiting the official report on that. She is currently fluid overloaded, so we are going to discontinue the intravenous fluids, and we are giving her a dose of Lasix and monitor her hydration, her volume status today. Ms. Mahajan is a potential transfer to [facility] later on today if she is hemodynamically stable. cc: Patrice Lomeli MD
[2019-04-22] MEDS: MESALAMINE PO SCH (08:16)
[2019-04-22] MEDS: LOVENOX SUBQ SCH ×2 (08:16→20:38)
[2019-04-22] MEDS: PLAQUENIL PO SCH ×2 (08:16→11:33)
[2019-04-22] MEDS: CARDIZEM PO SCH ×3 (08:16→16:28)
[2019-04-22] MEDS: VITAMIN D PO SCH (08:16)
[2019-04-22] MEDS: NORCO-5 PO PRN ×3 (11:11→20:46)
[2019-04-22] MEDS ORDERED: ALBUMIN 25% IV ONE (12:42)
[2019-04-22] MEDS ORDERED: POTASSIUM CHLORIDE 20% LIQUID PO ONE (12:42)
--- NOTE | 2019-04-22 13:02 | ECHO REPORT ---
ORDER DATE: 04/21/2019 MEASUREMENTS: Septal thickness 1.0, left ventricular end-diastolic diameter 5.1, posterior wall thickness 1.0, left ventricular end systolic diameter 3.0, aortic root 2.9, left atrium 4.3. SUMMARY: 1. Adequate quality study. 2. Aortic valve is trileaflet and opens normally on 2-dimensional images. Peak gradient across the aortic valve is 15 to 20 mmHg in setting of hyperdynamic left ventricular function. Mitral, tricuspid and pulmonic valves are without evidence of structural abnormality with mild mitral regurgitation, mild tricuspid regurgitation, and mild pulmonic insufficiency. The aortic root is normal size. The estimated systolic PA pressure by Doppler is 35 to 40 mmHg suggesting mild pulmonary hypertension. 3. Normal left ventricular dimensions demonstrated. Estimated left ejection fraction appears to be greater than 70%. No regional wall motion abnormalities are evident. Left atrium is mildly enlarged. Right atrium and right ventricle are normal size with preserved right ventricular systolic function. 4. No pericardial effusion. 5. Appearance of inferior vena cava suggests normal central venous pressure. CONCLUSIONS: 1. Mild mitral regurgitation. 2. Mild tricuspid regurgitation and mild pulmonic insufficiency with estimated systolic PA pressure 35 to 40 mmHg. 3. Estimated left ejection fraction at least 70% without regional wall motion abnormality evident. 4. Mild left atrial enlargement. cc: MD Patrice Potter MD
[2019-04-22] MEDS: ROCEPHIN 2 GM in NS 50 ML IV SCH (13:42)
--- NOTE | 2019-04-22 13:54 | Extremity Venous Study ---
PROCEDURE NAME: Venous U/S Right Leg - 04/21/2019 REQUESTING PHYSICIAN: Dr. Bartholomew. OVERNIGHT CAREGIVER: Shonna. INDICATIONS: Edema, pain and redness 3 weeks status post right total knee. EQUIPMENT: [employer] Vivid E9 ultrasound system with a 9L-D transducer. FINDINGS: Very limited study secondary to patient's morbid obesity but no obvious superficial or deep venous thrombosis noted in the veins identified. Again, a significant portion of the femoral vein was not visualized. INTERPRETATION: Limited study but no obvious superficial or deep venous thrombosis. cc: MD Merritt Ken CRNP
--- NOTE | 2019-04-22 15:17 | CARDIOLOGY PROGRESS NOTE ---
DATE: 04/22/2019 SUBJECTIVE: The patient has no complaints today other than she reports a little bit more swelling. She has no heart racing. PHYSICAL EXAMINATION: Patient is afebrile. Last T-max was 100.9 degrees on the . Heart rate 86, blood pressure 107/63. Generally she is in no acute distress. Cardiovascular: She is in an irregularly irregular rhythm consistent with atrial fibrillation noted on her monitor. She has 2+ bilateral lower extremity edema. Continued cellulitis noted on the anterior right lower leg. Warm and well perfused extremities. Her chest exam sounds clear. She has no increased work of breathing. Her abdomen is soft, nontender. PERTINENT DATA: White count 9.2, hematocrit 29, platelet count is 100,000. Her sodium is 134, potassium 3.2, BUN 35, creatinine is 1. Her albumin is 2.3. ASSESSMENT: Ms. Mahajan is a 63-year-old female who presents with what was felt to be cellulitis as well as a possible pneumonia. She is noted to have atrial fibrillation. PLAN: She is rate controlled. I have changed her to Lovenox from prophylactic dose to treatment dose. Based on her weight she will get it to b.i.d. Her rate is controlled. Her echocardiogram is currently pending. I will replete her potassium as it has not been done today as well as give her a dose of albumin considering it appears she is likely 3rd spacing. cc: Ritesh Estrella MD
[2019-04-23] MEDS: MESALAMINE PO SCH (08:00)
[2019-04-23] MEDS: PLAQUENIL PO SCH ×2 (08:00→11:55)
[2019-04-23] MEDS: CARDIZEM PO SCH ×3 (08:45→16:34)
[2019-04-23] MEDS: LOVENOX SUBQ SCH ×2 (08:45→21:33)
[2019-04-23] MEDS: VITAMIN D PO SCH (08:45)
[2019-04-23] MEDS ORDERED: ALBUMIN 25% IV ONE (09:19)
[2019-04-23] MEDS ORDERED: LASIX IV ONE (09:20)
--- NOTE | 2019-04-23 09:55 | PROGRESS NOTE ---
DATE: 04/23/2019 SUBJECTIVE: This morning, Ms. Mahajan refers to be feeling a lot better. She still refers some congestion and mild difficulty breathing, but she is off oxygen therapy, and she is saturating 97% on room air. OBJECTIVE: General: Ms. Mahajan is a 63-year-old female. She is in bed, no distress. HEENT: Mucosa is pink and moist. Anicteric. Acyanotic. Neck: Supple. There is no JVD. Chest: Air entry is bilaterally reduced. There are end inspiratory crackles in both lung hawley. There is also some mild end expiratory wheezing. Cardiovascular: Regular rate. No murmurs, no rubs, no gallops. GI: Abdomen is soft. There is some fluid in the lateral aspect of the abdominal wall. Extremities: Trace pedal edema. The right lower extremity erythematous changes seem to be a little bit more and large in size than yesterday. LABORATORY DATA: None for today. Troponin was less than 0.010. An echocardiogram which was done 3 days ago, result shows ejection fraction of 70 with no wall motion abnormality. The systolic PA pressure is 35 to 40, which suggests mild pulmonary hypertension. ASSESSMENT: 1. Sepsis with Streptococcus agalactiae bacteremia. The patient is currently on ceftriaxone. We are going to repeat her blood cultures tomorrow. She looks hemodynamically stable. 2. Right lower extremity cellulitis. Presumably this is the source of the strep bacteremia. This morning, however, the leg looks slightly more erythematous than yesterday. Obviously, I think she has an underlying stasis from venous insufficiency. She has been advised to keep the lower extremity elevated. I will also wait on Infectious Disease to evaluate this and see if they would want to make any changes to the antimicrobial coverage. 3. New onset of atrial fibrillation with rapid ventricular response. Rate is controlled. The patient seems to be in sinus at this moment. She is on p.o. Cardizem and on therapeutic Lovenox. Cardiology is on board. Echocardiogram was unremarkable with normal ejection fraction. 4. Fluid overload. The patient seems to be third spacing. Albumin was slightly low. We will continue to infuse her albumin with Lasix today and repeat her labs tomorrow morning and follow on her creatinine. 5. History of ulcerative colitis and lupus. The patient has been started back on her home medication. She seems to be stable. PLAN: In general, I think Ms. Mahajan is doing a lot better now. She is rate controlled and seems to be in sinus at this moment. We are going to transfer her from the ICU to the [facility]. We are going to continue with her current antimicrobial therapy. We will give her some albumin with Lasix for the third spacing edema, and we will encourage her to continue elevating the right lower extremity. Will be pending Infectious Disease evaluation today to see if they would want to make any changes to the current antimicrobial coverage. I have explained the plan to Ms. Mahajan and the partner that was in the room at the time of the encounter. cc: Patrice Lomeli MD
[2019-04-23] MEDS: ROCEPHIN 2 GM in NS 50 ML IV SCH (13:19)
--- NOTE | 2019-04-23 16:01 | INFECTIOUS DISEASE PROGRESS NO ---
DATE: 04/23/2019 PRESENT ILLNESS: The patient has a group B streptococcal bacteremia, which originated from her right leg cellulitis. MEDICATIONS: The patient is on Rocephin 2 g IV daily. PHYSICAL EXAMINATION: Vital Signs: Temperature earlier was 101; now it is 97.8. Pulse 100, respirations 18. Blood pressure is 140/79. General: This is an ill-appearing elderly female. She is in no acute distress, and she continues to look a little bit better each day. Head/eyes/ears/nose/throat: She can hear my spoken words and see near objects. She does not have any white patches in her mouth. Neck: No pain with movement of the neck. Lungs: Clear to auscultation. Cardiovascular: Heart rate is irregular. The patient has gone into atrial fibrillation. Abdomen: Soft and nontender. Extremities: The right leg is erythematous and swollen from below the knee to the foot. The patient's knee incision is intact, and there is no erythema or drainage from the incision. Neurologic: Patient is alert. She can move her extremities. There is no tremor. LAB AND X-RAY: There is no new radiographic study. The patient's blood cultures are growing group B strep. Creatinine is 1. GFR is 56. The CBC shows a white count of 9220, hemoglobin 9.8, platelet count 100,000. The patient's liver function studies are slightly elevated. ASSESSMENT AND PLAN: Patient has group B streptococcal bacteremia which originates from her leg cellulitis. Hematogenously, the patient's right total knee arthroplasty may have become infected. Because of that, I am planning on treating the patient for 6 weeks with IV Rocephin and following that with oral penicillin on a chronic basis. I ordered to elevate the patient's legs continually. COMORBIDITIES: The patient is elderly, she is obese and has chronic leg edema, and recently she had surgery on her knee. She also has systemic lupus, ulcerative colitis, and breast cancer which has been treated. cc: Yves Young MD MTDD
[2019-04-23] MEDS: NORCO-5 PO PRN ×2 (16:38→21:42)
[2019-04-24 07:20] LABS: BASO# 0.03 X1000 (0.0-0.2); BASO% 0.6 % (0.0-0.8); EOS# 0.18 X1000 (0.0-0.7); EOS% 3.5 % (0.0-10.0); HEMATOCRIT 28.9 % (37.0-47.0); HEMOGLOBIN 9.5 g/dL (12.0-16.0); IMM GRAN% 1.9 % (0.0-0.5); LYMPH# 1.37 X1000 (1.2-3.4); LYMPH% 26.3 % (20.5-51.1); MCH 29.3 PG (27-31); MCHC 32.9 g/dL (33-37); MCV 89.2 FL (81-99); MONO% 13.5 % (1.7-9.3); MPV 10.7 FL (7.4-10.4); NEUT# 2.82 X1000 (1.4-6.5); NEUT% 54.2 % (42.2-75.2); PLT 116 X1000 (130-400); RBC 3.24 XMIL (4.2-5.4); RDW 15.7 % (11.5-14.5)
[2019-04-24 07:33] LABS: CREATININE 1.3 mg/dL (0.5-0.9); POTASSIUM 3.3 mmol/L (3.5-5.1)
[2019-04-24 07:34] LABS: ALBUMIN 3.1 g/dL (3.5-5.0); CALCIUM 8.4 mg/dL (8.8-10.2); MAGNESIUM 2.1 mg/dL (1.5-2.7); PHOSPHORUS 2.3 mg/dL (2.7-4.5)
[2019-04-24] MEDS: LOVENOX SUBQ SCH ×2 (08:13→21:06)
[2019-04-24] MEDS: PLAQUENIL PO SCH ×2 (08:13→12:46)
[2019-04-24] MEDS: MESALAMINE PO SCH (08:13)
[2019-04-24] MEDS: VITAMIN D PO SCH (08:13)
[2019-04-24] MEDS: CARDIZEM PO SCH ×3 (08:13→16:35)
[2019-04-24] MEDS: NORCO-5 PO PRN ×2 (08:17→21:06)
[2019-04-24] MEDS ORDERED: POTASSIUM PHOSPHATE 40 MEQ in NS 250 ML IV ONE (09:01)
--- NOTE | 2019-04-24 12:24 | PROGRESS NOTE ---
DATE: 04/24/2019 SUBJECTIVE: This morning Ms. Mahajan refers to be doing okay and did not have any new complaints. Per the nursing staff, the night was uneventful. Ms. Mahajan was at the bedside at the time of the encounter. OBJECTIVE: Vital Signs: Blood pressure 122/63, pulse of 74, respirations 14, and 4temperature is 98.1 degrees. The patient is saturating 98% on room air. General: Ms. Mahajan is a 63-year-old female. She is in bed no distress. Mucosa is pink and moist. Anicteric. Acyanotic. Neck: Supple. Chest: Good air entry bilaterally. We did not hear any wheezing. No crackles this morning. Cardiovascular: Regular rate and rhythm. No murmurs, no rubs, no gallops. Abdomen: Soft. Distended but nontender. There is still some fluid in the lateral aspect of the abdominal wall. Extremities: Trace pedal edema. The right lower extremity is still erythematous changes but seems to be scaling. LABORATORY DATA: WBC is 5.20, hemoglobin 9.5, and platelet count 116,000. Chemistry is also reviewed. Sodium is normalized. Potassium is slightly low. Creatinine is up to 1.3. So far, blood cultures were repeated this morning. Patient continues to be on ceftriaxone. ASSESSMENT: 1. Sepsis on presentation associated with streptococcal agalactiae bacteremia. The patient is on ceftriaxone. There is a plan for 6 weeks treatment because of the hardware in the right knee. 2. Right lower extremity cellulitis. We think this was the source of the bacteremia. The patient is currently doing okay. 3. New onset of atrial fibrillation with RVR currently rate controlled. Patient is on p.o. Cardizem and therapeutic Lovenox. 4. Fluid overload. The patient is making adequate urine. She is still positive balance. We will hold off on the Lasix today because of the renal abnormality. 5. History of ulcerative colitis on lupus. 6. Acute kidney injury. We think this is probably an acute tubular necrosis. However, will also use Lasix recently for fluid overload. We will back off today on the Lasix and see if the renal function improves. The patient is making some urine, so we will keep our eye on this. Our general plan, blood cultures have been repeated today. We will wait on this results before we put in a PICC line if it comes back negative. We will also be trending the kidney function test. I will continue with the current antimicrobial coverage. cc: MD KALPESH Worrell
--- NOTE | 2019-04-24 12:46 | ORTHOPAEDICS PROGRESS NOTE ---
DATE: 04/24/2019 SUBJECTIVE: Tabitha Mahajan is a 63-year-old female with a right total knee arthroplasty, who has been admitted for cellulitis. She has no new complaints. OBJECTIVE: Her knee looks good. The incision is healing nicely. She does still have significant erythema and edema of her lower leg. ASSESSMENT: Stable right total knee with lower extremity cellulitis. PLAN: She will continue her medical care from an orthopedic standpoint. She should probably just keep her leg elevated. Continue to work on range of motion of her knee. Dr. Fine will be back to see her tomorrow. cc: Greg Ingram MD
[2019-04-24] MEDS: ROCEPHIN 2 GM in NS 50 ML IV SCH (13:27)
--- NOTE | 2019-04-24 16:23 | INFECTIOUS DISEASE PROGRESS NO ---
DATE: 04/24/2019 PRESENT ILLNESS: The patient has group B streptococcal bacteremia, which originated from her right leg cellulitis. The patient's creatinine is increasing by a small amount each day. I doubt it is due to Rocephin, because Rocephin is not metabolized by the kidneys. It is metabolized by the liver. MEDICATIONS: The patient is on Rocephin 2 g IV daily. Day #1 of treatment with Rocephin will be the first day that the patient's repeat blood cultures are sterile. PHYSICAL EXAMINATION: Vital Signs: Temperature is 98.1 degrees, pulse 74, respirations 14, blood pressure 122/63. General: This is an ill-appearing, elderly female. She is in no acute distress. Head/eyes/ears/nose/throat: She can hear my spoken words and see near objects. She does not have any white coating of her tongue. Neck: No pain with movement. Lungs: Clear to auscultation. Cardiovascular: Heart rate is regular. Abdomen: Soft and nontender. Extremities: The patient's right leg still is erythematous and edematous, but I think is looking better than it did a few days ago. The patient's incision is intact. It is not erythematous, and there is no drainage coming from it. Neurologic: The patient is alert. She can move her extremities. She talks in a coherent fashion. She does not have a tremor. LABORATORY AND X-RAY: There is no new radiographic study. Repeat blood cultures were drawn today. The creatinine continues to increase. It is 1.3 today. GFR is 41. CBC shows a white count of 5200, hemoglobin 9.5, and platelet count 116,000. ASSESSMENT AND PLAN: My plan is to continue Rocephin, and day #1 will be the first day that the patient's repeat blood cultures are negative. I am going to repeat the patient's creatinine tomorrow, and hopefully it will be decreasing. As I mentioned earlier, I will be treating the patient with Rocephin for 6 weeks in case her right total knee arthroplasty became infected hematogenously. Following the 6 weeks of IV Rocephin, I will put the patient on Pen-VK 500 mg p.o. every 12 hours on an indefinite basis. COMORBIDITIES: The patient is elderly. She is obese, and she has chronic leg edema. She recently had a total knee arthroplasty. The patient also has systemic lupus, ulcerative colitis, and breast cancer for which she has been treated. cc: Yves Young MD
--- NOTE | 2019-04-24 17:36 | EKG Report ---
Test Performed on : 04/24/2019 5:27:45 PM Test Reason : possible conversion to siuns rhythm Blood Pressure : / mmHG Vent. Rate : 079 BPM Atrial Rate : 079 BPM P-R Int : 204 ms QRS Dur : 104 ms QT Int : 336 ms P-R-T Axes : 027 048 -08 degrees QTc Int : 385 ms Normal sinus rhythm. Nonspecific T wave abnormality (diffuse flattening) Abnormal ECG When compared with ECG of 21-APR-2019 07:39, (Unconfirmed) Sinus rhythm. has replaced Atrial fibrillation. QT has shortened Confirmed by Reymundo STANTON, Zhao Armstrong ([id number]) on 04/26/2019 8:14:28 AM
[2019-04-25 07:32] LABS: HEMATOCRIT 27.8 % (37.0-47.0); HEMOGLOBIN 9.1 g/dL (12.0-16.0); MCH 29.5 PG (27-31); MCHC 32.7 g/dL (33-37); MCV 90.3 FL (81-99); MPV 11.1 FL (7.4-10.4); RBC 3.08 XMIL (4.2-5.4); RDW 15.8 % (11.5-14.5); WBC 4.05 X1000 (4.8-10.8)
[2019-04-25 07:42] LABS: AGAP 11; ALBUMIN 2.9 g/dL (3.5-5.0); BUN 27 mg/dL (8-22); CALCIUM 8.4 mg/dL (8.8-10.2); CHLORIDE 107 mmol/L (98-107); COSMO 286; CREATININE 0.9 mg/dL (0.5-0.9); ESTIMATED GFR > 60; GLUCOSE 93 mg/dL (70-104); PHOSPHORUS 3.2 mg/dL (2.7-4.5); POTASSIUM 3.7 mmol/L (3.5-5.1); SODIUM 141 mmol/L (136-145); TCO2 23 mmol/L (25-35)
--- NOTE | 2019-04-25 07:46 | INFECTIOUS DISEASE PROGRESS NO ---
DATE: 04/25/2019 PRESENT ILLNESS: The patient has a group B streptococcal bacteremia originating from her right leg cellulitis. The patient's creatinine has increased. I doubt this is due to the Rocephin because Rocephin is metabolized by the liver and not the kidney and it does not cause renal toxicity. MEDICATIONS: As mentioned above, the patient is on Rocephin. Day 1 will be the first day that the patient's repeat blood cultures are sterile. PHYSICAL EXAMINATION: Vital Signs: Temperature is 98 degrees, pulse 71, respirations 17, blood pressure 119/55. General: This is an ill-appearing, obese, elderly female. She is in no acute distress. Head/eyes/ears/nose/throat: She can hear my spoken words and see near objects. She does not have any white patches in her mouth. Neck: No pain with movement. Lungs: Clear to auscultation. Cardiovascular: Heart rate is regular. Abdomen: Soft and nontender. Extremities: The patient's right leg still is erythematous and edematous. The patient's knee incision is intact. Neurologic: Patient is alert. She can move her extremities. She talks in a coherent fashion. She does not have a tremor. LAB AND X-RAY: CBC, blood cultures and creatinine are pending from this morning. The patient's CBC shows a white count of 5200, hemoglobin 9.5, and platelet count 116,000. There is no new radiographic study. ASSESSMENT AND PLAN: The patient has streptococcal bacteremia originating from the patient's right leg cellulitis. The patient will need 6 weeks of treatment with IV Rocephin because she has a prosthesis in her right knee which could have been infected hematogenously with the streptococcal organism causing the bacteremia. Hopefully the patient's repeat blood cultures will be negative and then go ahead and put a PICC in her and possibly we could send the patient home on the IV Rocephin and leg elevation. Also, I have ordered a creatinine today and hopefully it will not be increased anymore than it already has. COMORBIDITIES: She is elderly. She is obese and she has chronic leg edema. She recently had a right total knee arthroplasty. The patient also has systemic lupus, ulcerative colitis and breast cancer for which she has been treated. cc: Yves Young MD
[2019-04-25] MEDS: LOVENOX SUBQ SCH ×2 (08:07→20:37)
[2019-04-25] MEDS: VITAMIN D PO SCH (08:07)
[2019-04-25] MEDS: PLAQUENIL PO SCH ×2 (08:07→11:41)
[2019-04-25] MEDS: NORCO-5 PO PRN ×2 (08:08→19:39)
[2019-04-25] MEDS: CARDIZEM PO SCH ×3 (08:09→16:04)
[2019-04-25] MEDS: MESALAMINE PO SCH (08:09)
[2019-04-25] MEDS: ROCEPHIN 2 GM in NS 50 ML IV SCH (13:02)
--- NOTE | 2019-04-25 16:38 | PROGRESS NOTE ---
DATE: 04/25/2019 SUBJECTIVE: This morning, Ms. Mahajan refers to be doing a lot better. She was sitting up with the leg elevated. OBJECTIVE: Vital signs: Blood pressure is 134/67, pulse of 73, respiration is 13, temperature 98.4 degrees. General: Ms. Mahajan is a 63-year-old female. She is sitting up in a chair. No distress. HEENT: Mucosa is pink and moist. Anicteric. Acyanotic. Neck: Supple. Chest: Clear to auscultation. Cardiovascular: Regular rate and rhythm. Abdomen: Soft, distended, but nontender. Extremities: Minimum edema on the lateral aspect of the extremities. Trace pedal edema in the right lower extremity. Continues to have some erythematous changes, but seems to be scaling. LABORATORY DATA: WBC is 4.05, hemoglobin is 9.1, platelet count of 134,000. Chemistry is reviewed. Creatinine is normalized. A repeat blood culture is still pending. ASSESSMENT: 1. Sepsis on presentation associated with Streptococcus agalactiae bacteremia. The patient is currently on ceftriaxone. There is a plan for 6 weeks IV antimicrobial therapy because of orthopedic hardware in the right knee. 2. Right lower extremity cellulitis. We think this is the source of the bacteremia. The patient is doing well. She has been advised to continue elevating the legs. 3. New onset atrial fibrillation with rapid ventricular response on presentation, controlled on Cardizem and therapeutic Lovenox. 4. Fluid overload, improved. 5. History of ulcerative colitis and lupus. The patient is on home medications. 6. Acute kidney injury, resolved. 7. Suspected underlying venous insufficiency. The patient has been advised to continue elevating the lower extremity whenever she is sitting or even lying down. PLAN: In general, I think Ms. Mahajan is hemodynamically stable. Heart rate is currently rate controlled and sinus. She is currently on long-acting Cardizem. There has been a repeat of the blood culture from yesterday with pending the final culture report before a PICC line is placed for long-term antimicrobial therapy. cc: Patrice Lomeli MD
[2019-04-26] MEDS: VITAMIN D PO SCH (08:36)
[2019-04-26] MEDS: PLAQUENIL PO SCH ×2 (08:36→12:19)
[2019-04-26] MEDS: LASIX IV SCH (08:37)
[2019-04-26 09:30] LABS: HEMATOCRIT 31.3 % (37.0-47.0); HEMOGLOBIN 10.2 g/dL (12.0-16.0)
[2019-04-26] MEDS: MESALAMINE PO SCH (09:35)
[2019-04-26] MEDS: CARDIZEM CD PO SCH ×2 (10:19→14:47)
[2019-04-26] MEDS: LOVENOX SUBQ SCH (10:20)
--- NOTE | 2019-04-26 10:23 | Diag Imaging Result Doc PS360 ---
EXAM: CT ANGIOGRM PULMONARY ARTERIES 04/26/2019 HISTORY: Rule out pulmonary embolus TECHNIQUE: This exam was performed using automated exposure control, adjustment of mA or kV according to patient size, and/or use of iterative reconstruction technique. COMMENT: There are no previous studies. 3-D MIPS were performed. There is right paratracheal adenopathy and matted nodes are noted in the prevascular region. There is subcarinal adenopathy. There is pleural fluid and/or pleural thickening on the right posteriorly. There is ascites. There is a fat density nodule seen between the anterior hemidiaphragm on the right and the liver on image 79. This measures 2.1 cm in greatest dimension. This may represent a lipoma in the hepatic capsule. The gallbladder is somewhat distended and there are small stones in the fundus. There is splenomegaly. The entire spleen is not included on the study however. There are no apparent filling defects in the pulmonary arteries. The thoracic aorta is normal in caliber and there is no evidence of dissection. The regional skeleton appears to be intact. There is minimal atelectasis present in the lung bases posteriorly. Otherwise, there is no evidence of lung consolidation. IMPRESSION: No evidence of pulmonary emboli. Mediastinal adenopathy. Right pleural effusion. Ascites. Splenomegaly. Electronically signed by Zev Mayfield 04/26/2019 10:20 AM
[2019-04-26 10:27] LABS: INR 1.15; PROTIME 14.9 Seconds (11.0-16.0)
[2019-04-26] MEDS: ZOFRAN IV PRN (12:18)
[2019-04-26] MEDS: ROCEPHIN 2 GM in NS 50 ML IV SCH (14:17)
[2019-04-26] MEDS ORDERED: NS 250 ML ONE (14:36)
--- NOTE | 2019-04-26 17:15 | PROGRESS NOTE ---
DATE: 04/26/2019 SUBJECTIVE: This morning Ms. Mahajan refers to be doing okay. However, she said since yesterday she has been having remarkable blood in her urine. Ms. Mahajan was on Lovenox, which has been discontinued because of this. OBJECTIVE: Vital signs: Blood pressure is 137/65, pulse 81, respirations 18, temperature 98.1 degrees. General: Ms. Mahajan is a 63-year-old female. She is in bed in no distress. Mucosa is pink and moist. Anicteric. Acyanotic. Neck: Supple. Chest: Clear to auscultation. Cardiovascular: Regular rate and rhythm. No murmurs. Abdomen: Soft, distended, but nontender. Extremities: The right lower extremity continues to be erythematous and tender. LABORATORY DATA: Hemoglobin is 10.3, INR of 1.5. A CTA of the lungs was done this morning which showed no evidence of pulmonary emboli. ASSESSMENT: 1. Sepsis on presentation associated with Streptococcus agalactiae bacteremia. The patient is on ceftriaxone. Subsequent blood cultures have come back negative. We will get a PICC line for long-term antimicrobial therapy. 2. Right lower extremity cellulitis with underlying venous insufficiency. Patient is on IV antibiotics. 3. New onset of atrial fibrillation with rapid ventricular rate on presentation. Patient is on Cardizem. Lovenox was discontinued this morning because of hematuria. 4. Hematuria of unclear etiology is presumed to be related with anticoagulation. However, we will do a scan to rule out any anatomical or any other etiology that could cause hematuria in the tract. 5. Fluid overload, resolved. 6. History of ulcerative colitis and lupus. Patient is on her home medications. 7. Acute kidney injury on presentation, resolved. 8. Suspected venous insufficiency noted. PLAN: In general, I think Ms. Mahajan is clinically stable. She did have hematuria since this morning. However, she said it seems to be clearing up. We are not 100% sure why she has hematuria. In any case, the Lovenox was withheld. Cardiology has switched her to Eliquis to start tomorrow. We are going to do an a CT scan of the abdomen and pelvis to rule out any renal pathology, a mass, or any possible cause of hematuria. We will also get a PICC line in tomorrow. If it is okay with the other subspecialties, we will be able to discharge her tomorrow. cc: Patrice Lomeli MD
--- NOTE | 2019-04-26 17:50 | INFECTIOUS DISEASE PROGRESS NO ---
DATE: 04/26/2019 PRESENT ILLNESS: Ms. Mahajan is being treated for group B strep bacteremia, which originated from her right lower extremity cellulitis. MEDICATION: She is receiving Rocephin 2 g IV daily. Based on her sterile blood cultures, today is day 2 of treatment for her bacteremia. PHYSICAL EXAMINATION: Vital Signs: Temperature is 98.1 degrees, pulse rate 81, respiratory rate 18, blood pressure 137/65. O2 saturation is 94% on room air. General: This is a chronically ill- appearing, elderly female. She is lying in the bed currently in mild distress due to some nausea and mild abdominal pain. HEENT: Atraumatic, normocephalic. Oral mucous membranes are pink and moist. Conjunctivae are pale. Neck: Supple. Trachea is midline. Cardiovascular: Heart rate and rhythm are regular. Normal sinus rhythm on the monitor. Respiratory: Lung sounds are clear to auscultation bilaterally. No work of breathing is noted. Abdomen: Soft, obese, and mildly tender with some nausea noted. Bowel sounds are audible. Extremities: She has pretibial pitting edema bilaterally with erythema noted to the right calf. Neurologic: She is awake, alert, oriented, and able to get up with assistance. LABORATORY AND X-RAY: Today her hemoglobin is 10.2. No other lab work available for today. The pulmonary arteriogram done earlier shows no evidence of pulmonary emboli with some ascites and splenomegaly. ASSESSMENT AND PLAN: Ms. Mahajan is being treated for streptococcal bacteremia. She does have a right knee prosthesis which could have been infected hematogenously, so she will need 6 weeks of treatment with IV Rocephin. A PICC line consult has already been put in, and the patient has been instructed regarding PICC line insertion protocol and home IV antibiotic administration. We will plan to see her in our office in 3 weeks and then again in 6 weeks. These plans have been discussed with and recommended by Dr. Young. COMORBIDITIES: For Ms. Mahajan include that she is elderly and morbidly obese with chronic lower extremity edema, right total knee arthroplasty, lupus, and ulcerative colitis. Dictated by BRITTANY Mcguire for Yves Young MD cc: Yves Young MD HEALTH SYSTEMAdrienne
[2019-04-26] MEDS: NORCO-5 PO PRN (18:22)
[2019-04-27] MEDS: LOVENOX SUBQ SCH (03:47)
[2019-04-27] MEDS ORDERED: ELIQUIS PO SCH ×2 (06:00→09:00)
--- NOTE | 2019-04-27 10:02 | Diag Imaging Result Doc PS360 ---
EXAM: CT ABDOMEN/PELVIS W/WO CONTRAS 04/27/2019 HISTORY: hematuria of unlcear etiology TECHNIQUE: This exam was performed using automated exposure control, adjustment of mA or kV according to patient size, and/or use of iterative reconstruction technique. COMMENT: There are no previous abdominal studies available for comparison. There is a right pleural effusion which appears slightly larger than on the previous thoracic study of 04/26/2019 and there is slightly worsened atelectasis in the posterior costophrenic sulcus on the right. The fatty nodule seen anterior to the liver on the previous thoracic study has not changed. There is ascites. There is splenomegaly the spleen measuring almost 13 cm in AP dimension and over 15.8 cm in superior-inferior dimension. There is anasarca in the flanks which appears worse in the upper abdomen than on the previous thoracic study. There is no evidence of nephrolithiasis or hydronephrosis. The kidneys appear slightly dense which may be result of persistent nephrographic contrast enhancement from the previous thoracic study. There is some contrast enhancement in the renal pelves bilaterally on the noncontrast acquisition. No definite evidence of nephrolithiasis is present. There is residual contrast enhanced urine in the bladder. There is nodularity of the liver consistent with cirrhosis. There is some variceal dilatation of portal collaterals around the splenic hilus. There are also esophageal varices. No definite hepatic masses are present. There are no apparent renal masses. There is no evidence of bowel obstruction. The aorta is not distended. There is no evidence of significant adenopathy. The mesenteric and renal arteries are patent. Pelvis: There is no evidence of appendicitis. There are multiple phleboliths present adjacent to the iliac vessels on the right. There are no apparent masses. There has been previous hysterectomy. There is no evidence of acute bony abnormality. IMPRESSION: 1. Worsened right pleural effusion and anasarca. Ascites. 2. Cirrhosis and splenomegaly with varices. 3. Persistent contrast opacification of the kidneys. This probably indicates medical renal disease. There is no evidence of obstructive uropathy. Correlation with renal function studies is recommended. Electronically signed by Zev Mayfield 04/27/2019 10:00 AM
[2019-04-27] MEDS: LASIX IV SCH (10:38)
[2019-04-27] MEDS: PLAQUENIL PO SCH ×2 (10:38→12:13)
[2019-04-27] MEDS: VITAMIN D PO SCH (10:39)
[2019-04-27] MEDS: CARDIZEM CD PO SCH (10:39)
[2019-04-27] MEDS: MESALAMINE PO SCH (10:39)
[2019-04-27] MEDS: NORCO-5 PO PRN (12:09)
[2019-04-27] MEDS: ROCEPHIN 2 GM in NS 50 ML IV SCH (12:13)
[2019-04-27 13:26] VITALS: BP 116/54
--- NOTE | 2019-04-28 19:35 | DISCHARGE SUMMARY ---
ADMISSION DATE: 04/21/2019 DISCHARGE DATE: 04/27/2019 DISPOSITION: Home. FOLLOWUP: 1. Dr. Sánchez Hendrickson. 2. Dr. Lentz. 3. Dr. Young. CONSULTATIONS DURING THIS ADMISSION: 1. Infectious Disease was consulted. Patient was seen by Dr. Young. 2. Orthopedics was consulted. Patient was seen by Dr. Fine. IMAGING STUDIES OF SIGNIFICANCE: 1. A chest x-ray did show borderline cardiomegaly with pulmonary edema. 2. A renal ultrasound was normal. 3. Extremity venous studies showed no obvious clots. 4. Echocardiogram showed an ejection fraction of 70%, no regional wall motion abnormalities. 5. CTA of the lungs showed no evidence of pulmonary emboli. 6. CT scan of the abdomen and pelvic because of hematuria showed worsening right pleural effusion, cirrhosis, and splenomegaly with varices, persistent contrast in the kidneys. ADMISSION DIAGNOSES: 1. Fever. 2. Suspected urinary tract infection. 3. History of lupus. 4. Status post knee replacement. DIAGNOSES AT THE TIME OF DISCHARGE: 1. Sepsis on presentation secondary to skin and soft tissue infection associated with Streptococcus agalactiae bacteremia. 2. Right lower extremity cellulitis with underlying venous insufficiency. 3. New onset of atrial fibrillation with rapid ventricular response on presentation. Controlled. 4. Hematuria of unclear etiology. We think this was related to anticoagulation. CT scan was unremarkable for any anatomical defect in the genitourinary tract. 5. Fluid overload. Resolved. 6. History of ulcerative colitis and lupus. The patient is on home medications. 7. Acute kidney injury on presentation. Resolved. 8. Suspected venous insufficiency. 9. Cirrhosis of the liver with splenomegaly and varices noted on CT scan. This has been addressed with Ms. Mahajan. She refers not to have known anything about this. She normally follows up with Dr. Hall, so we have advised that she follows up with him for further outpatient comprehensive evaluation. DISCHARGE MEDICATIONS: 1. Plaquenil 200 mg b.i.d. 2. Mesalamine 2 tablets. 3. Cholecalciferol 1000 units p.o. daily. 4. [place]. 5. Cardizem 180 p.o. daily. 6. Eliquis 5 mg b.i.d. 7. Furosemide 40 mg p.o. daily. 8. Omeprazole 20 mg p.o. daily. PRESENTING COMPLAINT: Fever, nausea, vomiting. HISTORY OF PRESENTING COMPLAINT: Ms. Mahajan is a 63-year-old, female, with a history of ulcerative colitis, breast cancer, recent right knee replacement, who came to the emergency department because of fever, nausea, vomiting. The patient was also found to have swelling of the right lower extremity. She was thought to have some form of ongoing infection, so she was admitted for further medical evaluation. HOSPITAL COURSE: Ms Mahajan was admitted to the medical floor. She was found to have cellulitis. Blood cultures finally came back positive for strep agalactiae. Because she has hardware in the right knee, Orthopedics was consulted. The patient was also seen by Infectious Disease and the antibiotics were titrated accordingly. During the hospital course, Ms. Mahajan went in to atrial fibrillation RVR, which converted on its own on Cardizem. She was seen by Cardiology. Cardiac enzymes were all normal. The patient also had an echocardiogram, which did not show any wall motion abnormality. She was started on IV Lovenox at some point. However, there was hematuria, so this was switched to Eliquis. Because of the hematuria, a CT scan of the abdomen and pelvis was done, which did not show any stone nor any mass or abnormalities. However, there was CT scan evidence of cirrhosis of the liver, splenomegaly, and varices. This was brought to Ms. Mahajan's attention. She refers that she normally follows up with Dr. Slater. This has never been brought to her attention. We did discuss that she will need to have a more comprehensive outpatient evaluation on that to rule out the possible etiologies and establish the adequate management. Repeat blood cultures have come back negative, so a PICC line has been put in place. [facility] has been consulted for outpatient antibiotic management. [facility] has also been consulted for home health. We think Ms. Mahajan is clinically stable for discharge. Her current vitals at the time of discharge, blood pressure is 116/54, pulse of 84, respirations 20, temperature is 98.2 degrees. She was saturating 95% on room air. TIME SPENT FOR DISCHARGE: 40 minutes. cc: MD Sánchez Worrell MD Ashish K. Basu, MD Leroy F. Harris, MD MTDD
== END 2019-04-27 14:50 | disposition home health service (06) | DRG 872 ==
LOC: ED 21:35 → 4N 21:35 → SUATTDRO 04-20 01:41 → ICU 04-20 17:01 → 2N 04-23 11:31 → 4N 04-25 23:11
PROVIDERS: ATTEND Internal Medicine